=== PATIENT | male | born 1955 | race Caucasian/White ===

== ENCOUNTER → 2020-02-06 | Outpatient (CLI) | payer OTHER ==
--- NOTE | ~2020-02-06 | TST ---
[place] [address] T[employer]MI[employer] STRESS TEST Name: NIRMALABAD Emil Room: [facility]#: [id number] Admission: 02/06/20 Attend Phys: Aníbal Richard, Discharge: Date of : 59 Date of Service: 02/06/20 1717 Report #: [id number] THIS REPORT FOR: cc: Chidi Whaley MD, Louis A. MD Liston, Michael J. MD [facility] ~ CC: Chidi Richard DATE OF SERVICE: 02/06/2020 PROCEDURE: Standard Lon protocol exercise stress test. INDICATION: Fatigue. CARDIAC HISTORY: Previous coronary artery bypass grafting as well as coronary intervention. CARDIAC RISK FACTORS: Hyperlipidemia, hypertension, peripheral vascular disease, diabetes mellitus, family history of coronary artery disease and age greater than 55. CARDIAC MEDICATIONS: Aspirin, atorvastatin, carvedilol and ramipril. The patient exercised per standard Lon protocol for 9 minutes and 54 seconds. The patient achieved a peak stress heart rate of 160 beats per minute and achieved an exercise stress level of 10.16 METS. The patient had no significant cardiac symptoms with exercise. The resting heart rate was 82 beats per minute with resting blood pressure of 150/87 mmHg. At peak exercise, the heart rate was 160 beats per minute with a peak stress blood pressure of 223/80 mmHg. Recovery heart rate was 93 beats per minute with a blood pressure of 171/85 mmHg. The patient had a mildly hypertensive response to exercise. The baseline 12-lead EKG shows sinus rhythm without significant ST segment or T-wave abnormality. EKGs obtained during and post-exercise shows sinus rhythm and sinus tachycardia with no significant ST segment or T-wave changes when compared to baseline. There were occasional premature atrial and premature ventricular contractions noted. There were no sustained arrhythmias. Recovery EKGs were unremarkable. IMPRESSION: 1. Clinical response to exercise [place] [address] [employer]MI[employer] STRESS TEST Name: ABAD KINNEY Room: [facility]#: [id number] Admission: 02/06/20 Attend Phys: Aníbal Richard, Discharge: Date of : 59 Date of Service: 02/06/201716 Report #: [id number] 2. EKG response to exercise was nonischemic. CONCLUSION: This standard Lon protocol exercise stress test shows no clinical or EKG evidence of stress-induced ischemia. This is a low-risk study. The patient did exhibit good exercise tolerance. By: [id number] Aníbal Richard MD, FACC /nt
== END ==
LOC: M.CRD 14:42
PROVIDERS: ATTEND Internal Medicine Cardiovascular Disease
DX: I25.10 Atherosclerotic heart disease of native coronary artery without angina pectoris (principal); R53.83 Other fatigue; Z79.899 Other long term (current) drug therapy